=== PATIENT | female | born 1970 | race Caucasian/White ===

== ENCOUNTER → 2017-10-06 | Outpatient (CLI) | payer OTHER | LOC: RAD 05:39 | DX: K21.9 Gastro-esophageal reflux disease without esophagitis (principal); I10 Essential (primary) hypertension ==

== ENCOUNTER → 2017-12-29 | Outpatient (CLI) | payer OTHER ==
[~2017-12-29] VITALS: Ht 160 cm; Wt 88.9 kg
[~2017-12-29] MED LIST: ALTACE5 MG PO; AMLODIPINE BESY10 MG PO; DOK100 MG PO; FERREX 150150 MG PO; MIRENA1 EACH INTRAUTERI; PROZAC20 MG PO
--- NOTE | ~2017-12-29 | O ---
[facility] [place] [address] OPERATIVE REPORT Name: ADALBERTO HEART Room #: [facility] [id number] Admission: 12/29/17 Attend Phys: Ramses Magallanes MD, F Discharge: Date of : 68 Report #: [id number] THIS REPORT FOR: //name// CC: Bakari Magallanes DATE OF SERVICE: 12/29/2017 PREPROCEDURE DIAGNOSES: 1. Morbid obesity, history of previous laparoscopic adjustable band. 2. Gastroesophageal reflux disease. 3. Arthritis. 4. Hypertension. 5. Urinary incontinence. POSTOPERATIVE DIAGNOSES: 1. Morbid obesity, history of previous laparoscopic adjustable band. 2. Abnormal motion of adjustable gastric band. 3. Gastroesophageal reflux disease. 4. Arthritis. 5. Hypertension. 6. Urinary incontinence. PROCEDURE: Thorough esophagogastroduodenoscopy. ANESTHESIA: Monitored anesthetic care (propofol 120 mg, ketamine 20 mg). ESTIMATED BLOOD LOSS: None. SPECIMEN: None. COMPLICATIONS: None appreciated. INDICATIONS FOR PROCEDURE: This is a 47-year-old female patient of Dr. Bakari James who stands 5 feet 3 inches and weighed over 200 pounds at her last office visit. Her maximum weight was 212 pounds prior to placement of her adjustable gastric band in 2011. Her lowest weight was 156 pounds 1 year after placement of the band; however, she has steadily gained weight to her current weight since that time. She has had difficulty with dysphagia and required removal of the fluid this past February. Prior to band placement, she had tried numerous weight loss programs and plans including specialized diets and exercises with limited weight loss success. Any amount of weight she had lost, she quickly regained plus additional weight after stopping the modality. The patient has been unable to lose substantial weight with diet and exercise, changes throughout her physician supervised visits. The patient presents today [address] [address] OPERATIVE REPORT Name: ADALBERTO HEART Room #: REG [facility] Amairani#: [id number] Admission: 12/29/17 Attend Phys: Ramses Magallanes MD, F Discharge: Date of : 68 Report #: [id number] for EGD. Her barium swallow on 10/06/2017 showed an intact swallowing mechanism with normal transit of contrast from the esophagus into the stomach through the band with no evidence for a hiatal hernia or gastroesophageal reflux during the exam. The band did not appear to be significantly malpositioned. OPERATIVE FINDINGS: The patient's EGD was normal other than the finding of abnormal motion of the adjustable gastric band with respirations and swallowing. This was seen on retroflexion of the scope. No polyps, masses, ulcers or diverticula were seen. DESCRIPTION OF PROCEDURE IN DETAIL: After the risks, benefits and expectations of the procedure were explained to the patient, informed consent was obtained. The patient was identified in the preoperative holding area. She was taken to the procedure room and a timeout was performed to identify the correct patient and procedure prior to her being given sedation. A bite block was then placed and the patient was given sedation and monitored anesthetic care. The gastroscope was inserted into the patient's oropharynx and passed down the esophagus into the stomach and beyond the pylorus to the third portion of the duodenum. The scope was then slowly withdrawn. With the scope withdrawn into the antrum, scope was retroflexed and a retrograde view of the cardia was seen. The scope was then straightened and slowly withdrawn. The stomach was decompressed. Measurements were taken, which included the GE junction and Z-line measured at 35 cm with the enfolding of the band measured at 38 cm from the teeth. The scope was fully withdrawn through the patient's oropharynx. The patient tolerated the procedure well. She was awakened and returned to the recovery room in stable condition. My recommendation is that the band needs to be removed given the patient's symptomatology and weight regain. She would benefit from a revisional bariatric operation (laparoscopic sleeve gastrectomy with removal of the adjustable gastric band and port). The patient will follow up with me in clinic for ongoing physician supervised weight loss visits. <ELECTRONICALLY SIGNED> By: Ramses Magallanes MD, FACS 12/29/17 1146 [id number] [id number] Ramses Magallanes MD, FACS /nt
== END | disposition home or self-care (01) ==
LOC: GI 06:59
DX: E66.01 Morbid (severe) obesity due to excess calories (principal); K21.9 Gastro-esophageal reflux disease without esophagitis; I10 Essential (primary) hypertension; F41.9 Anxiety disorder, unspecified; M19.90 Unspecified osteoarthritis, unspecified site; R32 Unspecified urinary incontinence; Z98.84 Bariatric surgery status; Z68.34 Body mass index [BMI] 34.0-34.9, adult; Z90.49 Acquired absence of other specified parts of digestive tract; Z98.51 Tubal ligation status; Z79.899 Other long term (current) drug therapy; Z98.890 Other specified postprocedural states
CPT/HCPCS: 62110; 62900

== ENCOUNTER → 2018-01-18 | Outpatient (CLI) | payer OTHER ==
--- NOTE | ~2018-01-18 | EKG ---
[place] [address] [facility] [place] [address] ELECTROCARDIOGRAM REPORT Name: ADALBERTO HEART [facility]: [facility] [id number] Admission: 01/18/18 Attend Phys: Ramses Magallanes MD, F Discharge: Date of : 68 Report #: [id number] THIS REPORT FOR: //name// [facility] Test Date: 2018-01-18 Test Time: 12:42:42 Pat Name: ADALBERTO HEART Department: Room: Gender: F Instructor Physical: Karina VILLEGAS : 1970 Requested By: Ramses Magallanes Order Number: [id number] MD: Nir Walters Measurements Intervals [place] Rate: 65 P: 38 CO: 139 QRS: 9 QRSD: 104 T: 31 QT: 396 QTc: 412 Interpretive Statements Sinus rhythm Nonspecific ST segment abnormality No previous ECG available for comparison Electronically Signed On 01-18-2018 17:07:18 CDT by Nir Walters [email or web address] <ELECTRONICALLY SIGNED> By: Nir Walters MD, [facility] 01/18/18 1707 1242 1242 Nir Walters MD, FACC /EPI
== END ==
LOC: RAD 12:01
DX: Z01.818 Encounter for other preprocedural examination (principal); I51.7 Cardiomegaly; Z98.84 Bariatric surgery status

== ENCOUNTER 2018-01-29 05:42 | Day surgery (SDC) | payer OTHER ==
[~2018-01-29] VITALS: Ht 160 cm; Wt 89.4 kg
--- NOTE | ~2018-01-29 | PATH ---
[facility] [place] [address] PATHOLOGY RPT PROCEDURE Name: ROBERTH CASTILLO Room #: DEP [facility] M.R.#: [id number] Admission: 01/29/18 Date of : 68 Discharge: 01/30/18 Report #: [id number] Path Case #: [id number] [facility] Accession Number: [id number] . 01 Material submitted: . PART A: GASTRIC SLEEVE PART B: GASTRIC LAP BAND . 01 Clinical history: . Morbid obesity . 02 Diagnosis: A. Stomach, gastric sleeve, partial sleeve gastrectomy: - Fundic gland polyps; negative for dysplasia. - Remainder mucosa showing no diagnostic abnormalities. . B. Gastric lap band, removal (gross examination only): - A 10.3 cm band attached to a pyramidal port measuring 2.5 cm as well as a 47.0 cm white plastic tubing material. . (IUV:mml; 02/01/18) [facility]/02/01/2018 . 02 Electronically signed: . Isaura Gardiner MD, Pathologist NPI- [id number] . 01 Gross description: . A. The specimen is received in formalin, labeled "Jonathan Roberth, gastric sleeve" and consists of a segment of gastrointestinal tissue closed with a line of mariana measuring 21.4 x 6.0 cm. The serosa is pink-soto and smooth and opening the specimen reveals a pink-soto mucosa. There are multiple nodules/polyps ranging from 0.2 cm to 0.5 cm and equal opportunity representative sections are submitted as follows: A1: Nodules/polyps A2-A3: Random equal opportunity representative sections . B. The specimen is received fresh, labeled "Roberth Castillo, gastric band" and consists of a lap band (10.3 x 1.7 cm) attached to a pyramidal port (2.5 x 2.5 cm) by a white plastic tube (47.0 x 0.3 cm). Gross photos are taken. (PABLO; 01/29/2018) ELLIOT/ELLIOT . 02 Pathologist provided ICD-10: K31.7, Z46.51 . [address] [place] [address] PATHOLOGY RPT PROCEDURE Name: ROBERTH CASTILLO Room #: DE[place] [facility] [place] M.Gildardo.#: [id number] Admission: 01/29/18 Date of : 68 Discharge: 01/30/18 Report #: [id number] Path Case #: [id number] [facility] . [id number] Performed at: [address] [facility] [address], [place], [place] [id number] MD Duran Tovar MD Phone: [phone] Performed at: [address] [facility] [id number] MD Isaura Gardiner MD Phone: [phone]
--- NOTE | ~2018-01-29 | O ---
[facility] [place] [address] OPERATIVE REPORT Name: ADALBERTO HEART Room #: DEP [facility] [place] M..#: [id number] Admission: 01/29/18 Attend Phys: Ramses Magallanes MD, F Discharge: 01/30/18 Date of : 68 Report #: [id number] THIS REPORT FOR: //name// CC: Bakari Magallanes DATE OF SERVICE: 01/29/2018 SURGEON: Ramses Magallanes MD TOURIST GUIDE: Angeles Malik MD PREOPERATIVE DIAGNOSES: 1. Class 2 obesity (BMI 35). 2. History of laparoscopic adjustable gastric band placement, now poorly functioning with dysphagia and weight regain. 3. Hypertension. 4. Arthritis. 5. Heartburn. POSTOPERATIVE DIAGNOSES: 1. Class 2 obesity (BMI 35). 2. History of laparoscopic adjustable gastric band placement, now poorly functioning with dysphagia and weight regain. 3. Intraabdominal adhesions. 4. Incisional ventral hernia. 5. Heartburn. PROCEDURE: 1. Laparoscopic removal of adjustable gastric band and port. 2. Laparoscopic sleeve gastrectomy with EGD. 3. Laparoscopic lysis of adhesions. 4. Primary repair of incarcerated incisional ventral hernia. ANESTHESIA: General endotracheal anesthesia and local anesthetic. ESTIMATED BLOOD LOSS: 5 mL. SPECIMEN: 1. Adjustable gastric band and port. 2. Lateral stomach. COMPLICATIONS: None appreciated. INDICATIONS FOR PROCEDURE: This is a 47-year-old female patient of Dr. Giancarlo James who stands 5 feet 3 inches, weighing nearly 200 pounds with a BMI of 35. [facility] [address] [place] [address] OPERATIVE REPORT Name: ADALBERTO HEART Room #: DEP [facility] [place] M.R.#: [id number] Admission: 01/29/18 Attend Phys: Ramses Magallanes MD, F Discharge: 01/30/18 Date of : 68 Report #: [id number] Her maximum weight is 212 pounds prior to placement of her adjustable gastric band. She recorded a lowest weight of 156 pounds approximately one year after placement of the band; however, she has steadily regained weight to her current weight since that time. She had some difficulty with dysphagia and required removal of the fluid this past February. The patient had tried numerous weight loss programs and plans as well as specialized diets and exercises with limited weight loss success. Any amount of weight she had lost, she had quickly regained, plus additional weight after stopping the modality. She has been cleared from a multidisciplinary standpoint for bariatric surgery. She presents now for revisional surgery with removal of the adjustable gastric band and sleeve gastrectomy. She had undergone an EGD showing abnormal motion of the band. OPERATIVE FINDINGS: Laparoscopically, intraabdominal adhesions were present as expected. This required lysis in order to uncover the adjustable gastric band. After its removal, the stomach was not significantly denuded to preclude continuing with the sleeve gastrectomy. After normalizing the anatomy, I was able to do so. An EGD was performed intraoperatively showing a normal esophagus down to the GE junction and Z-line. The stomach and duodenum to the third portion were normal without polyps, masses, diverticuli, or ulcers. The scope was kept in the stomach as a 34-[place] bougie. The gastric sleeve staple line was located 4 cm lateral/proximal to the pylorus, 3 cm lateral to the incisura of the stomach, and 1 cm lateral to the GE junction. After applying 10 mL of Tisseel to the staple line, a leak test was performed and found to be negative. Immediately after applying the Tisseel to the staple line, the gastroscope was used to gently insufflate carbon dioxide into the stomach and no air bubbles were seen forming within the Tisseel. The tubing connected to the subcutaneous port extended up through the anterior abdominal wall, and while dissecting out the port, an incarcerated incisional ventral hernia was identified with preperitoneal fat incarcerated through the defect. There was no bowel involvement. The excised stomach held 1000 mL of fluid. At the conclusion of the operation, sponge, needle, and instrument counts were correct. No other significant intraabdominal pathology was seen. DESCRIPTION OF PROCEDURE IN DETAIL: After the risks, benefits, and expectations of the operation were discussed in detail with the patient, informed consent was obtained. The patient was identified in preoperative holding area. She was given IV antibiotics as documented in the chart in line with [facility]. She was also given a scopolamine patch and prophylactic Lovenox. The patient was then taken to the operating room and she was placed in the supine position. SCDs were placed on the patient's bilateral lower extremities and pneumatic compression was initiated. The patient was given IV sedation and she was intubated without incident. A bite block and orogastric tube were placed by anesthesia under my direction. The patient was placed in the low lying dorsal lithotomy position in [facility]. Her abdomen was then prepped and draped in the standard sterile fashion. A time-out was performed to identify [address] [address] OPERATIVE REPORT Name: ADALBERTO HEART Room #: DEP [facility]#: [id number] Admission: 01/29/18 Attend Phys: Ramses Magallanes MD, F Discharge: 01/30/18 Date of : 68 Report #: [id number] the correct patient and procedure. Local anesthetic was infiltrated into the skin and subcutaneous tissue into the left supraumbilical area where a transverse incision existed from placement of the band reservoir/port. A sharp #15 blade scalpel was used to make an incision through the scar. A 5 mm Visiport was then placed intraperitoneally with a 0-degree angled laparoscope. Pneumoperitoneum was achieved with insufflation of carbon dioxide to 15 mmHg. A 30-degree angled laparoscope was inserted. A 5 mm ports were placed under direct visualization into the left mid and left lateral abdomen after local anesthetic was infiltrated into the skin and subcutaneous tissue and appropriately sized transverse incisions were made. The falciform ligament was pendulous and was retracted in order to place the right subcostal 15 mm port using the same technique. The patient was then placed in the reverse Trendelenburg position. Local anesthetic was infiltrated into the skin and subcutaneous tissue in the subxiphoid area where a small transverse skin dru was made and a 5 mm Visiport obturator was used to penetrate the fascia. The Janine liver retractor was then placed intraabdominally and positioned it to retract the liver in a cephalad direction. The retractor was held in place with the [employer] Customer Support Analyst apparatus. The intraabdominal adhesions were taken down. There was scar tissue extending from the stomach to the liver and this was dissected carefully with blunt dissection, sharp dissection, and judicious use of the ultrasonic dissector. After taking this down and freeing the liver, the retractor was repositioned to optimize visualization. The adjustable gastric band tubing was disconnected. The tissue overlying the adjustable gastric band was then divided with sharp dissection and judicious use of the ultrasonic dissector to uncover the buckle. The buckle was disconnected. Further dissection was undertaken in order to remove the band from the overlying tract. This required sharp division of the buckle to extract the band from the abdominal cavity. The tract was then carefully filleted open with sharp dissection and judicious use of the ultrasonic dissector to fully open the tract. At this point, we determined that the sleeve gastrectomy could commence. There was no evidence for erosion of the band or significant excoriation. The gastrosplenic ligament with short gastric vessels were then divided with the ultrasound dissector with good hemostasis. Dissection was also continued along the gastrocolic ligament to an area that was measured to be 4 cm lateral to the pylorus. The EGD scope was then advanced into the patient's oropharynx, passed down the esophagus, and into the stomach. The scope was advanced beyond the pylorus to visualize duodenum. The scope was then slowly withdrawn with findings as noted above. The scope was left in place along the lesser curvature of the stomach to serve as a 34-[place] bougie. [address] [address] OPERATIVE REPORT Name: ADALBERTO HEART Room #: DEP [facility] [place] M.R.#: [id number] Admission: 01/29/18 Attend Phys: Ramses Magallanes MD, F Discharge: 01/30/18 Date of : 68 Report #: [id number] The stomach was then rotated medially and posterior attachments and the posterior tract were carefully taken down to further normalize the gastric anatomy. Dissection was carried up to the left bibiana where hiatal hernia was not appreciated. After completely normalizing the anatomy, the gastric sleeve was created. The 60 mm powered laparoscopic JAIRON stapler was used to staple and divide the stomach starting distally and working proximally. Each staple load was buttressed with Geno-Strips. The initial 2 firings starting distally were with black loads; the remaining loads were green. After fully transecting the stomach, it was removed through the 15 mm port site. This required gentle stretching of the fascia. An 0 PDS suture was placed with the Brayan-Mary laparoscopic fascial closure device under direct visualization. The suture was tied under visualization to ensure no incorporation of intra-abdominal content. 10 mL of Tisseel was then applied to the gastric sleeve staple line with the Bell Boardzspviseto aerosolizer. There was good, even coverage of the entire staple line. Immediately after doing so, the gastroscope was used to gently insufflate air and a negative leak test as described above was performed. The Janine liver retractor was then removed under direct visualization. There was good hemostasis within the abdominal cavity. No other significant intra-abdominal pathology was seen laparoscopically. Removal of the port for the adjustable gastric band was then undertaken. The transverse incision in the left supraumbilical area was extended to follow the scar. Dissection was carried through the subcutaneous tissue down to the capsule of the port. The port was then dissected out of the pocket with electrocautery. The tubing was removed. While doing so, incarcerated preperitoneal fat was seen adjacent to this area. The herniated content was reduced back into the preperitoneal space. A [id number] 0 PDS suture was then used to close the hernia defect. Local anesthetic was infiltrated into the subfascial tissue as well as subdermally. After ensuring complete desufflation of the abdominal cavity, the ports had been removed and all incisions were closed with interrupted subcuticular 4-0 Monocryl sutures and Dermabond. The patient tolerated the procedure well. She was awakened, extubated, and taken to recovery room in stable condition with no apparent intraoperative complications. <ELECTRONICALLY SIGNED> By: Ramses Magallanes MD, FACS 02/02/18 8527 1051 1320 Ramses Magallanes MD, FACS /nt
[2018-01-29 06:45] VITALS: BP 127/80
[2018-01-29 16:30] VITALS: BP 142/89
[2018-01-29 16:45] VITALS: BP 169/93
[2018-01-29 17:17] VITALS: BP 143/75
[2018-01-29 17:54] VITALS: BP 136/68
[2018-01-29 19:43] VITALS: BP 138/64
[2018-01-30 03:55] VITALS: BP 174/98
[2018-01-30 05:43] LABS: ABSOLUTE NEUTROPHILS 8.3 thou/uL (1.4-8.2); BASOPHILS 0.1 % (0.0-2.0); HEMATOCRIT 35.1 % (37.0-47.0); HEMOGLOBIN 11.8 gm/dL (12.0-15.0); LYMPHOCYTES 9.1 % (24.0-44.0); MCH 27.9 pg (26.0-34.0); MCHC 33.6 g/dL (28.0-37.0); MCV 82.9 fL (80.0-100.0); MONOCYTES 9.3 % (1.0-8.0); PLATELET COUNT 242 thou/uL (150-400); POLYS 81.5 % (36.0-66.0); RBC 4.23 mil/uL (4.20-5.00); RDW 14.5 % (10.5-14.5); WBC 10.1 thou/uL (4.0-11.0)
[2018-01-30 05:51] LABS: CREATININE 0.9 mg/dL (0.6-1.0); POTASSIUM 3.8 mmol/L (3.5-5.1)
[2018-01-30 07:45] VITALS: BP 142/61
[2018-01-30 10:27] VITALS: BP 142/61
== END 2018-01-30 13:25 | disposition home or self-care (01) ==
LOC: TBA 05:42 → OR 05:42 → 4E 16:26 → OR 16:41
PROVIDERS: Surgery
DX: E66.01 Morbid (severe) obesity due to excess calories (principal); K43.0 Incisional hernia with obstruction, without gangrene; R13.19 Other dysphagia; I10 Essential (primary) hypertension; F41.9 Anxiety disorder, unspecified; M19.90 Unspecified osteoarthritis, unspecified site; R12 Heartburn; Z68.35 Body mass index [BMI] 35.0-35.9, adult; Z79.899 Other long term (current) drug therapy; Z90.49 Acquired absence of other specified parts of digestive tract; Z98.51 Tubal ligation status; Z98.890 Other specified postprocedural states; Z86.2 Personal history of diseases of the blood and blood-forming organs and certain disorders involving the immune mechanism; Z98.84 Bariatric surgery status
CPT/HCPCS: 10783; 50010; 50101; 50222; 50249; 50386; 50555; 50739; 50740; 50962; 51437; 51489; 52182; 52265; 53307; 53311; 54022; 54118; 55245; 56462; 56525; 56526; 57092; 62110; 62900; 70005